=== PATIENT | male | born 1985 | race Two or more races ===

== ENCOUNTER 2021-03-05 21:45 | Emergency (ER) | payer SELFPAY ==
[~2021-03-05] VITALS: Ht 167.6 cm; Wt 92.7 kg
[2021-03-05] MEDS ORDERED: ACETAMINOPHEN 500 MG TABLET PO ONE (23:15)
[2021-03-05] MEDS ORDERED: IBUPROFEN 800 MG TABLET PO ONE (23:15)
[2021-03-05 23:16] LABS: COVID AG,FIA SOURCE NASOPHARYNGEAL
[2021-03-05] MEDS ORDERED: ONDANSETRON HCL 4 MG TABLET PO ONE (23:45)
[2021-03-06 01:00] VITALS: BP 113/74
== END 2021-03-06 01:05 | disposition home or self-care (01) ==
LOC: EMS 21:45
DX: U07.1 COVID-19 (principal)
CPT/HCPCS: 87426; 99285; Q0162